=== PATIENT | female | born 1975 | race Hispanic/Latino ===

== ENCOUNTER 2016-08-19 22:39 | Outpatient (CLI) | payer OTHER ==
[2016-08-19] MEDS ORDERED: PRENTAB9 PO (23:13)
[2016-08-20] MEDS ORDERED: ACETAMINOPHEN 500 MG TAB PO ONE
--- NOTE | 2016-08-20 01:20 | IPNPDOC ---
Text Note Date of Service The patient was seen on 08/20/16 at 01:10. NOTE Subjective: Mary is a 41yo with an IUP at 23+wk who presents to triage s/p fall. She was shoveling snow to get her truck out of a snowbank and she fell backward onto her back/bottom. She states she did not hit her belly nor her abdomen. She has experienced no loss of fluid, contractions, or vaginal bleeding. She feels movement. However, she does note some significant pain in her lower back that is radiating to her hips. She has no prior history of back injury or back pain. Objective: Vitals wnl, afebrile Prolonged Monitoring x 2 hours: FHT 150 with moderate variability, +accels, - decel. Reassuring for gestational age. Rampart: no CTXs or uterine irritability Physical: Gen: well developed and well nourished in NAD. Mental: A&Ox3. Abdomen: Gravid, soft, NT/ND without rebound or guarding Back: no bruising present, with deep palpation pain localizes to lower lumbar muscles on either side of the spine but not the spine itself Extremity: no edema in LE bilaterally. Assessment: Mary is a 41yo with an IUP at 23+wk with no evidence of placental abruption. Likely back pain has musculoskeletal origin related to a muscle strain in her lumbar region. Patient experienced some relief after a dose of Tylenol. Prolonged monitoring x2 hours reassuring without CTXs or uterine irritability. Vitals stable with otherwise benign physical exam. Plan: -Tylenol 1000 mg q8 for pain and rest strongly encouraged -Work note given for absence today and tomorrow -f/u scheduled on Aug in our OB clinic -if pain not improving by next appointment, consider flexeril -Return precautions given for bleeding, fluid loss, contractions, not feeling movement, worsening of pain preventing her from performing activities of daily living -encouraged hydration -med rec reviewed MD Jamil Jetre KATRINA D. MD Aug 20, 2016 01:19
== END 2016-08-20 01:04 | disposition home or self-care (01) ==
LOC: M LDO 22:39
PROVIDERS: ATTEND Obstetrics & Gynecology
DX: O26.892 Other specified pregnancy related conditions, second trimester (principal); M54.5 Low back pain; W00.9XXA Unspecified fall due to ice and snow, initial encounter; Y92.89 Other specified places as the place of occurrence of the external cause; Y93.29 Activity, other involving ice and snow; Y99.8 Other external cause status; Z3A.23 23 weeks gestation of pregnancy

== ENCOUNTER 2016-09-14 18:57 | Outpatient (CLI) | payer OTHER ==
[~2016-09-14 18:57] MED LIST: PRENTAB9 PO
[2016-09-14] MEDS ORDERED: ACET50TA PO (20:25)
[2016-09-14] MEDS ORDERED: CYCLOBENZAPRINE 10 MG TAB PO SCH (21:00)
== END 2016-09-14 21:00 | disposition home or self-care (01) ==
LOC: M LDO 18:57
PROVIDERS: ATTEND Obstetrics & Gynecology
DX: O99.89 Other specified diseases and conditions complicating pregnancy, childbirth and the puerperium (principal); M62.830 Muscle spasm of back; Z3A.26 26 weeks gestation of pregnancy

== ENCOUNTER 2016-11-07 18:53 | Outpatient (CLI) | payer OTHER ==
[2016-11-07] VITALS (8 sets, daily range): BP systolic 125–159; BP diastolic 71–84
[~2016-11-07] VITALS: Ht 157.5 cm; Wt 75.0 kg
[~2016-11-07 18:53] MED LIST changes: +ACET50TA PO
[2016-11-07] MEDS ORDERED: TERBUTALINE SULFATE 1 MG/ML VIAL (J3105) SC ONE ×2 (19:45→22:00)
[2016-11-07] MEDS ORDERED: LR 1,000 ML IV ONE (19:45)
[2016-11-07] MEDS ORDERED: LR 1,000 ML IV SCH (19:45)
[2016-11-07 20:29] LABS: MEAN CORPUSCULAR HEMOGLOBIN 31.5 pg (27.0-33.0); MEAN CORPUSCULAR HGB CONC 35.1 g/dl (32.0-36.5); MEAN CORPUSCULAR VOLUME 89.7 fl (80.0-96.0); RED CELL DISTRIBUTION WIDTH 12.8 % (11.5-14.5)
[2016-11-07 20:30] LABS: ALT/SGPT 17 U/L (12-78); AST/SGOT 14 U/L (15-37); BILIRUBIN,TOTAL 0.2 MG/DL (0.2-1.0); CREATININE FOR GFR 0.52 MG/DL (0.55-1.02); GLOMERULAR FILTRATION RATE > 60.0 (>60); URIC ACID 4.2 MG/DL (2.6-6.0)
[2016-11-07 20:47] LABS: GLUCOSE,RANDOM 90 MG/DL (LESS THAN 200)
--- NOTE | 2016-11-07 21:36 | HPE ---
DATE OF ADMISSION: 11/07/2016 This lady is a 41-year-old 4, para 2, abortium 1, last menstrual period (LMP) 03/11/2016, estimated date of confinement (EDC) 12/16/2016, at 34 weeks of gestation with history of contractions over 24 hours, but more intense over the last 12 hours. Her risk factors are that she is an advanced maternal age (AMA) delivery times two by sections, one of which was with severe pre-GDM1, posttraumatic stress disorder (PTSD), and she was in inpatient mental health unit (IPMU) for suicidal depression. PAST HISTORY: 1. In 1996 at 36 weeks, she had pre-eclampsia with spontaneous rupture of membranes by section, male 5 pounds 9 ounces. 2. In 1998 at 36 weeks premature rupture of membranes. Attempted a trial of labor after delivery (TOLAC), had a non-reassuring heart strip, section of male 5 pounds 9 ounces. On examination today she is in no acute distress. Symphysis fundus height is 34, vertex presenting. She has a fingertip posterior and high. No loss of fluid. No vaginal bleeding. No scar pain and category one strip with contractions. The rest of the examination is unremarkable. She is normocephalic, atraumatic. Neck: Full range of motion. Pupils equal and reactive to light. Chest is clear bilaterally to bases. No wheezes or rhonchi noted. Distal pulses are symmetric. No evidence of deep venous thrombosis (DVT), pulmonary embolism (PE) or superficial phlebitis. No costovertebral angle (CVA) tenderness. Uterus is appropriate height. Four quadrant bowel sounds are noted. Nontender and vertex presenting. She has no rashes, lesions or pruritus. Does have a tattoo. No arthralgia or myalgia. No complaints of cough, we shortness of breath or dyspnea on exertion. No chest pain. She is not bleeding. She is neurologically complete. No incontinence, urgency or frequency. No nausea, vomiting, diarrhea or constipation. As mentioned, she has had elevated blood sugars. Her one-hour glucose was 141. Her three-hour glucose is 97/239/200/159. The rest of the examination unremarkable. We had a discussion with the patient and her regarding pre-eclampsia and elevated blood sugars. Our plan of management was to hydrate the patient, give her some terbutaline to space out the contractions, reexamine her in an hour to see if there is any change. Also, her protein creatinine ratio was 0.5 which recommends that we collect a 24-hour urine for protein, which is presently started. Her complete blood count (CBC) shows a hemoglobin 12.7, hematocrit 36.1 and platelets are 158. Her hemoglobin A1c and random sugar are pending. The rest of her pre-eclamptic profile elevation is negative in all areas. Her uric acid is 4.2, AST/GSGOT is 14, ALT/SGPT is 117. Kidney function is greater than 60.0 and her blood creatinine is 0.52, which is low. In summary, we have an advanced maternal age with uterine contractions, possibility of progressing to pre-eclampsia based on protein creatinine ratio, enough evidence to collect a 24-hour urine. If the examination suggests that she is going to go into active labor. We will go ahead and initiate steroid protocol to enhance lung maturity and neurological prophylaxis is an option. Both patient and understand the situation. We spent 45 minutes in discussion with the patient her .
[2016-11-07 23:22] LABS: HBSAG L&D NEGATIVE (NEGATIVE)
[2016-11-08] MEDS ORDERED: PROMETHAZINE INJ 25 MG/ML VIAL (J2550) IV ONE (01:00)
[2016-11-08] MEDS ORDERED: BUTORPHANOL 2 MG/ML INJ (J0595) IV ONE (01:00)
[2016-11-08 07:14] VITALS: BP 105/55
[2016-11-08 08:02] VITALS: BP 130/58
[2016-11-08] MEDS ORDERED: BETAMETHASONE SOLUSPAN 6MG/ML INJ 5ML (J0702) IM SCH (08:30)
[2016-11-08] MEDS ORDERED: ACETAMINOPHEN TAB 650MG DOSE (2X325MG) PO PRN (08:30)
[2016-11-08] MEDS ORDERED: ONDANSETRON 4MG/2ML VIAL (J2405) IV PRN (08:30)
--- NOTE | 2016-11-08 08:32 | IPNPDOC ---
Text Note Date of Service The patient was seen on 11/08/16. NOTE I assumed care for Mary this morning at 0400. She is a 41yo with SIUP at 34w4d who presented to L&D with ctx. She has been monitored since yesterday. Received 2 doses of terbutaline. She had a run of mild range bp's last night so PIH workup performed with normal labs. Currently obtaining 24hr urine protein. FHRT has remained Cat I. SCE on presentation ft/thick/high/posterior and on re-check this morning she is unchanged. Ctx q8-11min, non-painful currently. Given risk for pre-term labor (especially in the setting of 2 prior sections at 36wk for pre-eclampsia -->NRFHT), will give IM betamethasone 12mg now and a dose tomorrow, even though she has demonstrated no cervical change. Will continue obtaining 24hr UP and plan to send to the lab this evening. If 24hr UP is wnl and she maintains stability, will likely discharge this evening. Will continue to monitor today on antepartum moseley. Regular diet Saline lock IV NST at 1200 and 1700 24hr UP Betamethasone 12mg IM now GBS collected and pending Dr. Porsha Gallardo MD Ramona VALENTINA LEON,Tatum, I+O VS, Tatum, I+O Laboratory Tests 11/07/16 19:52 Random Glucose 90, Aspartate Amino Transf (AST/SGOT) 14 L, Alanine Aminotransferase (ALT/SGPT) 17, Lactate Dehydrogenase 168, Total Bilirubin 0.2, Uric Acid 4.2, Red Blood Count 4.03, Mean Corpuscular Volume 89.7, Mean Corpuscular Hemoglobin 31.5, Mean Corpuscular Hemoglobin Concent 35.1, Red Cell Distribution Width 12.8 Vital Signs Date Time Temp Pulse Resp B/P Pulse Ox O2 Delivery O2 Flow Rate FiO2 11/08/16 07:14 98.7 102 18 105/55 PORSHA GALLARDO MD Nov 08, 2016 08:32
[2016-11-08] MEDS ORDERED: PRENATAL VITAMIN TAB PO SCH (09:00)
[2016-11-08 12:11] VITALS: BP 134/74
[2016-11-08 16:49] VITALS: BP 136/64
[2016-11-08 19:47] VITALS: BP 136/67
--- NOTE | 2016-11-09 01:42 | IPNPDOC ---
Text Note Date of Service The patient was seen on 11/09/16. NOTE Overnight Observation Note Mary is a 41yo with SIUP at 34w4d who presented to L&D with ctx. She was monitored overnight and received 2 doses of terbutaline. She had a run of mild range bp's overnight so PIH workup performed with normal labs. 24hr urine protein was obtained which resulted 229.5mg. She was completely asymptomatic for pre-E. FHRT remained Cat I. SCE on presentation ft/thick/high/posterior and on re-check in the morning she was unchanged. Ctx q8-11min, non-painful. Given risk for pre-term labor (especially in the setting of 2 prior sections at 36wk for PROM), administered IM betamethasone 12mg with plan to re- dose tomorrow, even though she demonstrated no cervical change. Plan: Betamethasone 12mg IM at 0930 11/09 for 2nd dose, patient instructed to come to clinic for injection GBS collected and pending Continue routine visits Strong return precautions given for labor and pre-eclampsia symptoms Dr. Porsha Gallardo MD Staff Physician, OBTatum SETH I+O Tatum LEON I+O Vital Signs Date Time Temp Pulse Resp B/P Pulse Ox O2 Delivery O2 Flow Rate FiO2 11/08/16 19:47 99.0 111 16 136/67 Room Air I&O- Last 24 Hours up to 6 AM 11/09/16 05:59 Intake Total 1990 ml Output Total 1575 ml Balance 415 ml PORSHA GALLARDO MD Nov 09, 2016 01:42
== END 2016-11-08 20:30 | disposition home or self-care (01) ==
LOC: M LDO 18:53
PROVIDERS: ATTEND Obstetrics & Gynecology
DX: O47.03 False labor before 37 completed weeks of gestation, third trimester (principal); O09.523 Supervision of elderly multigravida, third trimester; O09.213 Supervision of pregnancy with history of pre-term labor, third trimester; O09.293 Supervision of pregnancy with other poor reproductive or obstetric history, third trimester; O99.343 Other mental disorders complicating pregnancy, third trimester; F43.10 Post-traumatic stress disorder, unspecified; O99.810 Abnormal glucose complicating pregnancy; Z3A.00 Weeks of gestation of pregnancy not specified
CPT/HCPCS: 59025; 81050; 82247; 82565; 82570; 82947; 83615; 84156; 84450; 84460; 84550; 85027; 86780; 86850; 86900; 86901; 87081; 87340; 96374; J0595; J0702; J3105

== ENCOUNTER 2016-11-16 18:54 | Outpatient (CLI) | payer OTHER ==
[~2016-11-16] VITALS: Ht 157.5 cm; Wt 74.0 kg
[2016-11-16 19:12] VITALS: BP 118/65
== END 2016-11-16 19:50 | disposition home or self-care (01) ==
LOC: M LDO 18:54
PROVIDERS: ATTEND Student in an Organized Health Care Education/Training Program
DX: O47.1 False labor at or after 37 completed weeks of gestation (principal); Z87.51 Personal history of pre-term labor; Z3A.35 35 weeks gestation of pregnancy; O09.523 Supervision of elderly multigravida, third trimester

== ENCOUNTER 2016-11-20 20:28 | Outpatient (CLI) | payer OTHER ==
[~2016-11-20] VITALS: Ht 157.5 cm; Wt 74.0 kg
[2016-11-20] MEDS ORDERED: ZYRT10TA2 PO (20:49)
== END 2016-11-21 00:01 | disposition home or self-care (01) ==
LOC: M LDO 20:28
PROVIDERS: ATTEND Advanced Practice Midwife
DX: O62.0 Primary inadequate contractions (principal); O09.523 Supervision of elderly multigravida, third trimester; O24.410 Gestational diabetes mellitus in pregnancy, diet controlled; Z3A.36 36 weeks gestation of pregnancy; O34.219 Maternal care for unspecified type scar from previous cesarean delivery; O09.293 Supervision of pregnancy with other poor reproductive or obstetric history, third trimester; O99.343 Other mental disorders complicating pregnancy, third trimester; F33.9 Major depressive disorder, recurrent, unspecified; F43.10 Post-traumatic stress disorder, unspecified; F41.9 Anxiety disorder, unspecified; Z91.013 Allergy to seafood

== ENCOUNTER 2016-11-29 04:56 | Outpatient (CLI) | payer OTHER ==
[~2016-11-29 04:56] MED LIST changes: +ZYRT10TA2 PO
== END 2016-11-29 07:00 | disposition home or self-care (01) ==
LOC: M LDO 04:56
PROVIDERS: ATTEND Obstetrics & Gynecology
DX: O62.0 Primary inadequate contractions (principal); Z3A.37 37 weeks gestation of pregnancy; O09.523 Supervision of elderly multigravida, third trimester; O34.219 Maternal care for unspecified type scar from previous cesarean delivery; O09.893 Supervision of other high risk pregnancies, third trimester

== ENCOUNTER 2016-11-29 22:53 | Inpatient (IN) | payer OTHER ==
[~2016-11-29] VITALS: Ht 157.5 cm; Wt 72.0 kg
[2016-11-29] MEDS ORDERED: ACETAMINOPHEN 500 MG TAB PO PRN (23:15)
[2016-11-29] MEDS ORDERED: LACTATED RINGER'S 1000 ML IV STA (23:32)
[2016-11-29] MEDS ORDERED: BICITRA 30ML SOLN UDC PO ONE (23:45)
[2016-11-30] VITALS (8 sets, daily range): BP systolic 121–152; BP diastolic 61–76
[2016-11-30 00:01] LABS: MEAN CORPUSCULAR HEMOGLOBIN 31.1 pg (27.0-33.0); MEAN CORPUSCULAR HGB CONC 33.7 g/dl (32.0-36.5); MEAN CORPUSCULAR VOLUME 92.2 fl (80.0-96.0); RED CELL DISTRIBUTION WIDTH 12.9 % (11.5-14.5); WHITE BLOOD COUNT 8.3 K/mm3 (4.0-10.0)
[2016-11-30] MEDS ORDERED: METOCLOPRAMIDE INJ 10MG/2ML VIAL (J2765) IV PRN (01:24)
[2016-11-30] MEDS ORDERED: NALBUPHINE HCL 10 MG/ML AMP (J2300) IV PRN ×2 (01:24→02:30)
[2016-11-30] MEDS ORDERED: NALOXONE INJ 0.4 MG/1 ML VIAL (J2310) IV PRN ×2 (01:24)
[2016-11-30] MEDS ORDERED: ePHEDrine SULFATE 25 MG/5 ML(5MG/ML) SYRINGE As Ordered ONE (01:35)
[2016-11-30] MEDS ORDERED: OXYTOCIN INJ 10 UNITS/ML VIAL (J2590) As Ordered ONE (01:35)
[2016-11-30] MEDS ORDERED: dexameTHASONE 4 MG/ML 1ML VIAL (J1100) As Ordered ONE (01:35)
[2016-11-30] MEDS ORDERED: ONDANSETRON 4MG/2ML VIAL (J2405) As Ordered ONE (01:35)
[2016-11-30] MEDS ORDERED: PHENYLephrine HCL 500 MCG/5 ML (100MCG/ML) SYRINGE (J2370) As Ordered ONE (01:35)
[2016-11-30] MEDS ORDERED: MORPHINE PRES-FREE INJ 10 MG/10 ML VIAL (J2274) As Ordered ONE (01:35)
[2016-11-30] MEDS ORDERED: KETOROLAC 60 MG/2 ML VIAL (J1885) As Ordered ONE (01:44)
[2016-11-30] MEDS ORDERED: MIDAZOLAM INJ 2 MG/2 ML VIAL (J2250) As Ordered ONE (01:54)
[2016-11-30] MEDS ORDERED: fentaNYL 100 MCG/2 ML INJECTION (J3010) IV PRN (02:30)
[2016-11-30] MEDS ORDERED: ONDANSETRON 4MG/2ML VIAL (J2405) IV PRN ×2 (02:30)
[2016-11-30] MEDS ORDERED: PROMETHAZINE 25 MG TAB PO PRN (02:30)
[2016-11-30] MEDS ORDERED: LR 1,000 ML IV SCH ×2 (02:30)
[2016-11-30] MEDS ORDERED: METHYLERGONOVINE MALEATE 0.2 MG TAB PO PRN (02:30)
[2016-11-30] MEDS ORDERED: MEPERIDINE INJ 25 MG/ML VIAL (J2175) IV PRN (02:30)
[2016-11-30] MEDS ORDERED: MEASLES,MUMPS,RUBELLA VACCINE INJ (MMR-II) (90707) SC SCH (02:30)
[2016-11-30] MEDS ORDERED: diphenhydrAMINE INJ 50MG/ML VIAL (J1200) IV PRN (02:30)
[2016-11-30] MEDS ORDERED: RHOGAM 300 MCG (1500 IU) INJ (J2790) IM SCH (02:30)
[2016-11-30] MEDS ORDERED: OXYTOCIN 30 UNITS IN 0.9% NaCl 500ML IV BAG (J2590) As Ordered ONE (02:47)
[2016-11-30] MEDS ORDERED: OXYTOCIN INJ 10 UNITS/ML VIAL (J2590) IV ONE (03:00)
[2016-11-30] MEDS: KETOROLAC 30 MG/ML VIAL (J1885) IV SCH ×3 (08:30→20:18)
[2016-11-30] MEDS: DOCUSATE SODIUM 100 MG CAP PO SCH ×2 (08:30→20:19)
[2016-11-30] MEDS: PRENATAL VITAMIN TAB PO SCH (08:30)
--- NOTE | 2016-11-30 09:26 | RO ---
DATE OF PROCEDURE: 11/30/2016 PREPROCEDURE DIAGNOSIS: Repeat section. POSTPROCEDURE DIAGNOSIS: Repeat section. PROCEDURE: Repeat section. SURGEON: Miles Casanova MD GROUND WATER CONTRACTOR: Bailee Howell CNM ANESTHESIA: Spinal. DESCRIPTION OF PROCEDURE: She is a 41-year-old, G3, P3, at 37 and 4, who presented again to labor and delivery for concern for labor. Previously been seen on multiple occasions with continued contractions. Previously admitted for labor and was steroid complete by the end of October. also complicated by previous (C) section times two with desire for repeat, advanced maternal age (AMA) at age 41, as well as GDMA1. Upon evaluation, patient determined to be showing cervical change and progressing towards active labor with decision made to then perform repeat low transverse . The risk/benefits/indications/alternatives were reviewed with patient, and informed consent was obtained. Patient was taken to the operating room where spinal anesthesia was obtained without difficulty. She was then prepped and draped in the normal sterile fashion in dorsal supine position with a left lateral tilt. A Allen catheter was then placed. A Pfannenstiel skin incision was made with a scalpel and carried through to the underlying layer of fascia. The fascia was incised in the midline, the incision extended laterally with Riggs scissors on both sides. Superior aspect of the fascial incision grasped with Javier clamps times two, elevating the underlying rectus muscle, dissected off bluntly, aided with Riggs scissors and Bovie. Attention was then turned to the inferior aspect of the incision which, in a similar fashion, was grasped, tented up with Javier clamps, and the rectus muscle dissected off both with blunt dissection as well as with Riggs scissors. Rectus muscle was then in the midline with the assistance of Yesy clamps times two. The peritoneum was identified, tented up, and entered digitally as well as with Yesy clamps. The peritoneal incision was then extended horizontally and superiorly with good visualization of the bladder. Bladder blade was then introduced into the abdomen. The vesicouterine peritoneum was identified and found to be well inferior to the hysterotomy site. It was picked up, grasped, and entered sharply with Metzenbaum scissors and extended laterally, creating a bladder flap. Next, the lower uterine segment was incised in a transverse fashion with a scalpel. The amniotic sac was artificially ruptured, productive of clear fluid. Uterine incision was extended manually in a superior lateral fashion. Bladder blade was removed, and the was found to be in cephalic presentation. Baby was delivered through the hysterotomy without difficulty. Cord was clamped times two and cut, and the baby with bulb suctioned and was then carried off to the waiting pediatric team at the [facility]. Cord blood was then obtained. Placenta was removed with gentle traction on the umbilical cord manually. At this time, noted normal appearing fallopian tubes and ovaries bilaterally. Uterus was exteriorized and cleared of all clots and debris. After a bladder blade was reintroduced, the hysterotomy was repaired with #0 Monocryl in a running locked fashion. A second layer of #0 Monocryl was performed in horizontal imbrication. At this time, slight oozing was noted with two figure-of-8's performed for hemostasis. One was with #3-0 Vicryl, the other with #0 Monocryl. At this time, the hysterotomy appeared to again be hemostatic, and the posterior cul-de-sac was irrigated with warm saline. The uterus was reintroduced into the abdomen. The bilateral gutters were then inspected and found to be clear of all clots and debris. The bladder blade was removed, and hysterotomy was again noted to be hemostatic. The fascia was reapproximated with #0 Vicryl in a running fashion. The subcutaneous layer was closed with #3-0 Vicryl in multiple interrupted fashion. The skin was closed with #4-0 Monocryl on a PS2. Incision was dressed with 1/2-inch Steri-Strips as well as a pressure dressing. At completion of the case, bimanual exam performed with good uterine tone, minimal vaginal bleeding. Patient tolerated the procedure well. Sponge, lap, and needle counts correct times three. Patient was taken to the recovery room in stable condition. Prior to skin incision, Ancef had been provided. scores for a healthy male boy 9, 9. Weight 3325 or 7 pounds 5 ounces. Delivery time of 1:44 a.m. Edited: maged 12/03/2016 [id number]
[2016-11-30] MEDS: PERCOCET 5MG/325MG TAB PO PRN ×2 (10:18→16:20)
[2016-12-01] VITALS (7 sets, daily range): BP systolic 113–143; BP diastolic 58–79
[2016-12-01] MEDS: KETOROLAC 30 MG/ML VIAL (J1885) IV SCH (02:25)
[2016-12-01 06:59] LABS: MEAN CORPUSCULAR HEMOGLOBIN 31.4 pg (27.0-33.0); MEAN CORPUSCULAR HGB CONC 33.8 g/dl (32.0-36.5); MEAN CORPUSCULAR VOLUME 92.9 fl (80.0-96.0); RED CELL DISTRIBUTION WIDTH 13.2 % (11.5-14.5)
[2016-12-01] MEDS: DOCUSATE SODIUM 100 MG CAP PO SCH ×2 (07:54→20:20)
[2016-12-01] MEDS: PRENATAL VITAMIN TAB PO SCH (07:54)
[2016-12-01] MEDS: PERCOCET 5MG/325MG TAB PO PRN ×3 (07:55→20:21)
[2016-12-02] MEDS: PERCOCET 5MG/325MG TAB PO PRN (03:25)
[2016-12-02 05:40] VITALS: BP 125/85
[2016-12-02] MEDS ORDERED: OXYC1TAB23 PO (08:48)
[2016-12-02] MEDS ORDERED: PERC5TAB6 PO (08:48)
[2016-12-02] MEDS ORDERED: COLA100C3 PO (08:48)
[2016-12-02] MEDS: DOCUSATE SODIUM 100 MG CAP PO SCH (11:08)
[2016-12-02] MEDS: PRENATAL VITAMIN TAB PO SCH (11:08)
--- NOTE | 2016-12-07 05:33 | IPN ---
DATE OF VISIT: 11/29/2016 The patient has requested circumcision of their male . After discussing risks and benefits of circumcision, the medical, the nonmedical indications, the penile block and aftercare, expressed understanding of the penile block and aftercare, signed and witnessed the consent form. We await the clearance by the cryolite recovery operator.
== END 2016-12-02 12:00 | disposition home or self-care (01) | DRG 766 ==
LOC: M LDO 22:53 → M LDI 23:42 → M OBS 11-30 04:42
PROVIDERS: ADMIT Student in an Organized Health Care Education/Training Program; ATTEND Student in an Organized Health Care Education/Training Program
PROC: 10D00Z1 Extraction of Products of Conception, Low, Open Approach (ICD-10-PCS; principal; 2016-11-29)
DX: O34.211 Maternal care for low transverse scar from previous cesarean delivery (principal); Z37.0 Single live birth; O75.82 Onset (spontaneous) of labor after 37 completed weeks of gestation but before 39 completed weeks gestation, with delivery by (planned) cesarean section; Z3A.37 37 weeks gestation of pregnancy